=== PATIENT | male | born 1935 | race Caucasian/White ===

== ENCOUNTER 2017-08-18 13:44 | Emergency (ER) | payer OTHER ==
[2017-08-18 14:45] LABS: BASOPHILS % (AUTO) 0.6 % (0.0-5.0); EOSINOPHILS % (AUTO) 3.1 % (0.0-8.0); HEMATOCRIT 42.2 % (42-54); LYMPHOCYTES % (AUTO) 21.3 % (21.0-51.0); MEAN CORPUSCULAR HEMOGLOBIN 31.3 pg (27.0-33.0); MEAN CORPUSCULAR HGB CONC 33.9 g/dL (32.0-36.0); MEAN CORPUSCULAR VOLUME 92.4 fL (79-99); MONOCYTES % (AUTO) 10.6 % (3.0-13.0); NEUTROPHILS % (AUTO) 64.4 % (40.0-77.0); NUCLEATED RED BLOOD CELLS 0.1 % (0.0-0.19); PLATELET COUNT (AUTO) 170 K/uL (130-400); RED BLOOD CELL COUNT(AUTO) 4.57 MIL/uL (4.50-6.20); WHITE BLOOD COUNT (AUTO) 6.9 K/uL (4.8-10.8)
[2017-08-18 14:55] LABS: CARBON DIOXIDE 22 mmol/L (21-32); CHLORIDE 98 mmol/L (101-111); CREATININE 1.1 mg/dL (0.5-1.5); GLOMERULAR FILTR. RATE CALC 69 mL/min (>60); GLUCOSE,RANDOM 87 mg/dL (70-105); POTASSIUM 3.4 mmol/L (3.5-5.1); SODIUM SERUM 135 mmol/L (136-145); UREA NITROGEN, BLOOD 19 mg/dL (7-18)
[2017-08-18 14:56] LABS: INR 0.95 (0.85-1.15); PARTIAL THROMBOPLASTIN TIME 25.6 SEC (26.3-35.5)
[2017-08-18 15:09] LABS: ALANINE AMINOTRANSFERASE 164 U/L (12-78); ALBUMIN 3.2 g/dL (3.5-5.0); ALCOHOL, BLOOD 125 mg/dL (0-10); ASPARTATE AMINOTRANSFERASE 132 U/L (10-37); BILIRUBIN,TOTAL 0.7 mg/dL (0.2-1.0); CREATINE KINASE MB < 0.5 ng/mL (0.5-3.6); CREATINE KINASE, TOTAL 104 U/L (21-232); LIPASE 297 U/L (114-286); TOTAL PROTEIN, SERUM 6.7 g/dL (6.0-8.3)
[2017-08-18 15:22] LABS: APPEARANCE,URINE Clear (CLEAR); BILIRUBIN,URINE Negative (NEGATIVE); COLOR,URINE Dark Yellow (YELLOW); GLUCOSE, URINE (UA) Negative (NEGATIVE); KETONES,URINE 15 mg/dL (NEGATIVE); LEUKOCYTE ESTERASE ,URINE Trace (NEGATIVE); NITRATE,URINE Negative (NEGATIVE); OCCULT BLOOD,URINE Negative (NEGATIVE); PH,URINE 5.5 (5.0-8.0); PROTEIN,URINE POS 1+ (NEGATIVE)
[2017-08-18 15:39] LABS: BACTERIA,URINE Rare /HPF (None Seen); RBC,URINE None Seen /HPF (0-1); SQUAMOUS EPITHELIAL CELL,UR 0-2 /LPF (0-2); WBC,URINE 0-1 /HPF (0-1)
== END 2017-08-18 18:55 | disposition home or self-care (01) ==
LOC: EDH 13:44
DX: F10.129 Alcohol abuse with intoxication, unspecified (principal); I10 Essential (primary) hypertension; E78.5 Hyperlipidemia, unspecified; R79.1 Abnormal coagulation profile; Z72.0 Tobacco use; Z79.899 Other long term (current) drug therapy; Z90.49 Acquired absence of other specified parts of digestive tract
CPT/HCPCS: 36415; 80053; 81001; 82270; 82550; 82553; 83690; 84484; 85025; 85610; 85730; 93005; 99285; G0480

== ENCOUNTER 2017-08-25 21:00 | Observation (INO) | payer OTHER ==
[~2017-08-25] VITALS: Ht 175.3 cm; Wt 72.1 kg
[2017-08-25 21:47] LABS: BASOPHILS % (AUTO) 0.8 % (0.0-5.0); EOSINOPHILS % (AUTO) 4.9 % (0.0-8.0); HEMATOCRIT 44.3 % (42-54); LYMPHOCYTES % (AUTO) 21.1 % (21.0-51.0); MEAN CORPUSCULAR HEMOGLOBIN 31.1 pg (27.0-33.0); MEAN CORPUSCULAR HGB CONC 33.6 g/dL (32.0-36.0); MEAN CORPUSCULAR VOLUME 92.6 fL (79-99); NEUTROPHILS % (AUTO) 59.2 % (40.0-77.0); NUCLEATED RED BLOOD CELLS 0.1 % (0.0-0.19); PLATELET COUNT (AUTO) 253 K/uL (130-400); RED BLOOD CELL COUNT(AUTO) 4.78 MIL/uL (4.50-6.20); RED CELL DISTRIBUTION WIDTH 14.4 % (11.0-15.5)
[2017-08-25 22:29] LABS: POTASSIUM 3.7 mmol/L (3.5-5.1)
[2017-08-25 22:34] LABS: ALBUMIN 3.1 g/dL (3.5-5.0); BILIRUBIN,TOTAL 0.7 mg/dL (0.2-1.0); TOTAL PROTEIN, SERUM 6.8 g/dL (6.0-8.3)
[2017-08-25] MEDS ORDERED: SODIUM CHLORIDE 0.9% 1000ML 1,000 ML IV ONE (23:04)
[2017-08-25] MEDS ORDERED: THIAMINE HCL 100 MG/ML 2ML VIAL ONE (23:04)
[2017-08-25] MEDS ORDERED: IPRATROPIUM/ALBUTEROL SULFATE 3 ML SOLUTION IH ONE (23:18)
[2017-08-25 23:50] LABS: ACETONE,BLOOD NEGATIVE (NEGATIVE)
[2017-08-25 23:55] LABS: ALCOHOL, BLOOD < 3 mg/dL (0-10)
[2017-08-26] MEDS ORDERED: IPRATROPIUM/ALBUTEROL SULFATE 3 ML SOLUTION IH ONE (01:04)
[2017-08-26] MEDS ORDERED: IPRATROPIUM/ALBUTEROL SULFATE 3 ML SOLUTION IH PRN (01:15)
[2017-08-26] MEDS ORDERED: DEXTROSE 5 %-0.45 % NACL 1,000 ML IV ONE (04:26)
[2017-08-26 07:15] VITALS: BP 163/80
[2017-08-26] MEDS ORDERED: LISI-613 PO (08:21)
[2017-08-26] MEDS ORDERED: SERT50TA12 PO (08:21)
[2017-08-26] MEDS ORDERED: METO-408 PO (08:21)
[2017-08-26] MEDS ORDERED: AEC81 PO (08:21)
[2017-08-26] MEDS ORDERED: HYDR25TA PO (08:21)
[2017-08-26] MEDS ORDERED: HYDR-3422 PO (08:21)
[2017-08-26] MEDS ORDERED: ATOR10 PO (08:21)
[2017-08-26] MEDS: DEXTROSE 5 %-0.45 % NACL 1,000 ML IV SCH ×3 (08:29→22:25)
[2017-08-26] MEDS: ENOXAPARIN SODIUM 30 MG/0.3 ML SQ SCH (09:24)
[2017-08-26 11:00] VITALS: BP 157/77
[2017-08-26 12:30] VITALS: BP 147/67
[2017-08-26 16:00] VITALS: BP 165/81
[2017-08-26 19:55] VITALS: BP 156/79
[2017-08-26] MEDS: HYDROXYZINE HCL 25 MG TABLET PO SCH (22:21)
[2017-08-26] MEDS: ATORVASTATIN CALCIUM 10 MG TABLET PO SCH (22:21)
[2017-08-26] MEDS: METOPROLOL TARTRATE 25 MG TAB PO SCH (22:23)
[2017-08-27 03:45] VITALS: BP 132/72
[2017-08-27 06:31] LABS: ALBUMIN 2.6 g/dL (3.5-5.0); BILIRUBIN,DIRECT 0.1 mg/dL (0.0-0.3); BILIRUBIN,TOTAL 0.5 mg/dL (0.2-1.0); CREATININE 0.8 mg/dL (0.5-1.5); POTASSIUM 3.1 mmol/L (3.5-5.1)
[2017-08-27 07:41] LABS: HEMATOCRIT 40.1 % (42-54); MEAN CORPUSCULAR HEMOGLOBIN 31.7 pg (27.0-33.0); MEAN CORPUSCULAR HGB CONC 33.9 g/dL (32.0-36.0); MEAN CORPUSCULAR VOLUME 93.6 fL (79-99); NUCLEATED RED BLOOD CELLS 0.1 % (0.0-0.19); PLATELET COUNT (AUTO) 197 K/uL (130-400); RED BLOOD CELL COUNT(AUTO) 4.29 MIL/uL (4.50-6.20); RED CELL DISTRIBUTION WIDTH 14.8 % (11.0-15.5); WHITE BLOOD COUNT (AUTO) 6.4 K/uL (4.8-10.8)
[2017-08-27 08:59] LABS: BAND NEUTROPHILS % (MANUAL) 2 % (0-2); BASOPHILS % (MANUAL) 2 % (0-2); EOSINOPHILS % (MANUAL) 8 % (1-6); LYMPHOCYTES % (MANUAL) 28 % (22-44); MONOCYTES % (MANUAL) 8 % (2-9); SEGMENTED NEUTROPHILS % 52 % (40-70)
[2017-08-27 09:00] LABS: MAN.DIFF COMMENT-IMPRESSION MANUAL DIFFERENTIAL; PLATELET MORPHOLOGY COMMENT LARGE PLTS PRESENT
[2017-08-27 09:17] VITALS: BP 174/80
[2017-08-27] MEDS: HYDROXYZINE HCL 25 MG TABLET PO SCH ×2 (10:16→20:59)
[2017-08-27] MEDS: ENOXAPARIN SODIUM 30 MG/0.3 ML SQ SCH (10:16)
[2017-08-27] MEDS: METOPROLOL TARTRATE 25 MG TAB PO SCH ×2 (10:17→20:59)
[2017-08-27] MEDS: HYDROCHLOROTHIAZIDE 25 MG TABLET PO SCH (10:17)
[2017-08-27] MEDS: ASPIRIN 81 MG EC TAB PO SCH (10:17)
[2017-08-27] MEDS: LISINOPRIL 20 MG TABLET PO SCH (10:18)
[2017-08-27] MEDS: SERTRALINE HCL 50 MG TABLET PO SCH (10:18)
[2017-08-27 13:23] VITALS: BP 163/89
[2017-08-27 19:34] VITALS: BP 157/90
[2017-08-27] MEDS ORDERED: POTASSIUM CHLORIDE 20 MEQ ERTAB PO PRN (19:45)
[2017-08-27] MEDS ORDERED: LIDOCAINE HCL-MPF 1% 2ML VIAL IVP PRN (19:45)
[2017-08-27] MEDS ORDERED: POTASSIUM CHLORIDE 20MEQ/100ML 100 ML IV PRN (19:45)
[2017-08-27 20:00] VITALS: BP 151/77
[2017-08-27] MEDS: ATORVASTATIN CALCIUM 10 MG TABLET PO SCH (20:59)
[2017-08-27] MEDS: POTASSIUM CHLORIDE 10% ELIXIR 20 MEQ/15 ML UDCUP PO PRN ×2 (21:00→23:17)
[2017-08-27] MEDS ORDERED: TRAZODONE HCL 50 MG TAB PO SCH (21:00)
[2017-08-28] VITALS: BP 147/71
[2017-08-28] MEDS: POTASSIUM CHLORIDE 10% ELIXIR 20 MEQ/15 ML UDCUP PO PRN (03:36)
[2017-08-28 04:00] VITALS: BP 142/68
[2017-08-28] MEDS: DEXTROSE 5 %-0.45 % NACL 1,000 ML IV SCH (05:09)
[2017-08-28] MEDS ORDERED: FLUOXETINE HCL 10 MG CAPSULE PO SCH (09:00)
[2017-08-28 09:09] VITALS: BP 131/59
[2017-08-28 12:23] VITALS: BP 129/86
[2017-08-28 13:34] LABS: APPEARANCE,URINE Clear (CLEAR); BILIRUBIN,URINE Negative (NEGATIVE); COLOR,URINE Yellow (YELLOW); GLUCOSE, URINE (UA) Negative (NEGATIVE); KETONES,URINE Negative (NEGATIVE); LEUKOCYTE ESTERASE ,URINE Negative (NEGATIVE); NITRATE,URINE Negative (NEGATIVE); OCCULT BLOOD,URINE Negative (NEGATIVE); PH,URINE 5.5 (5.0-8.0); PROTEIN,URINE Negative (NEGATIVE); UROBILINOGEN,URINE 0.2 mg/dL (0.2-1.0)
[2017-08-28] MEDS: HYDROXYZINE HCL 25 MG TABLET PO SCH (14:13)
[2017-08-28] MEDS: HYDROCHLOROTHIAZIDE 25 MG TABLET PO SCH (14:13)
[2017-08-28] MEDS: ASPIRIN 81 MG EC TAB PO SCH (14:13)
[2017-08-28] MEDS: METOPROLOL TARTRATE 25 MG TAB PO SCH (14:14)
[2017-08-28] MEDS: SERTRALINE HCL 50 MG TABLET PO SCH (14:15)
[2017-08-28] MEDS: LISINOPRIL 20 MG TABLET PO SCH (14:15)
[2017-08-28] MEDS: ENOXAPARIN SODIUM 30 MG/0.3 ML SQ SCH (14:20)
[2017-08-28 17:19] VITALS: BP 156/80
== END 2017-08-28 19:55 | disposition home or self-care (01) ==
LOC: EDH 21:00 → EDHIP 08-26 00:51 → 4CH 08-26 07:49
PROVIDERS: ADMIT Internal Medicine; ATTEND Internal Medicine
DX: E86.0 Dehydration (principal); E78.5 Hyperlipidemia, unspecified; I10 Essential (primary) hypertension; F41.9 Anxiety disorder, unspecified; F32.9 Major depressive disorder, single episode, unspecified; Z90.49 Acquired absence of other specified parts of digestive tract; R63.0 Anorexia; J20.9 Acute bronchitis, unspecified; J44.0 Chronic obstructive pulmonary disease with (acute) lower respiratory infection
CPT/HCPCS: 36415 ×2; 80048; 80053; 80076; 81003; 82009; 85025 ×2; 94640 ×2; 94664; 96360; 96361 ×3; 96372 ×3; 99285; G0378 ×67; G0480; J1650 ×3; J3411; J7030; J7042 ×2